=== PATIENT | female | born 1955 | race Caucasian/White ===

== ENCOUNTER → 2017-12-31 | Outpatient (CLI) | payer OTHER | LOC: FIMAGING 15:01 | PROVIDERS: ATTEND Family Medicine | DX: J43.9 Emphysema, unspecified (principal); M50.320 Other cervical disc degeneration, mid-cervical region, unspecified level; M53.82 Other specified dorsopathies, cervical region; M41.23 Other idiopathic scoliosis, cervicothoracic region; Z87.891 Personal history of nicotine dependence ==